=== PATIENT | female | born 1995 | race Hispanic/Latino ===

== ENCOUNTER 2018-01-10 06:55 | Inpatient (IN) | payer OTHER ==
--- OUTSIDE RECORDS SUMMARY | 2018-01-10 06:58 | XMS REPORT ---
:1995 Author Organization eClinicalWorks Care Team Providers Name Role Phone Robi Stevens Provider Role Unavailable Allergies No Known Allergies Problems Problem Type Condition Code Onset Dates Condition Status Problem Encounter for supervision of other Z34.82 Active normal in second trimester Assessment Encounter for supervision of other Z34.83 Active normal , third trimester Problem Encounter for supervision of other Z34.83 Active normal , third trimester Medications No Known Medications Results No Known Results Summary Purpose eClinicalWorks Submission
--- OUTSIDE RECORDS SUMMARY | 2018-01-10 06:58 | XMS REPORT ---
[...] Medications Results No Known Results Summary Purpose [employer] Submission
--- OUTSIDE RECORDS SUMMARY | 2018-01-10 06:58 | XMS REPORT ---
[...] Medications Results No Known Results Summary Purpose [facility]ClinicalWall[facility]ass Submission
--- OUTSIDE RECORDS SUMMARY | 2018-01-10 06:58 | XMS REPORT ---
[...] Medications Results No Known Results Summary Purpose [facility]ClinicalAmi[facility] Submission
--- OUTSIDE RECORDS SUMMARY | 2018-01-10 06:58 | XMS REPORT ---
[...] Medications Results No Known Results Summary Purpose eClinicalInfopia Submission
--- OUTSIDE RECORDS SUMMARY | 2018-01-10 06:58 | XMS REPORT ---
[...] Medications Results No Known Results Summary Purpose [email or web address] Submission
[2018-01-10] MEDS ORDERED: BUTORPHANOL 1 MG/ML INJ IV PRN (07:24)
[2018-01-10] MEDS ORDERED: PROMETHAZINE 25 MG/ML VIAL IV PRN ×2 (07:24)
[2018-01-10] MEDS ORDERED: Ringers Lactate 1,000 ML IV PRN (07:24)
[2018-01-10] MEDS ORDERED: OXYTOCIN/LR 20 UNIT/1,000 ML BAG IV ONE (07:39)
[2018-01-10 07:52] LABS: RPR Titer ND
[2018-01-10 07:58] VITALS: BMI 35.4
[2018-01-10] MEDS ORDERED: OXYTOCIN/LR 20 UNIT/1,000 ML BAG IV SCH (08:00)
[2018-01-10] MEDS ORDERED: Ringers Lactate 1,000 ML IV SCH (08:00)
[2018-01-10 08:05] LABS: Absolute Lymphocytes (CBC) 2.4 K/uL (0.7-4.9); Absolute Monocytes 0.5 K/uL (0.1-1.3); Absolute Neutrophil 5.7 K/uL (1.8-8.0); Basophils % 0.6 % (0-1.3); Hematocrit 36.3 % (36.0-45.0); Lymphocytes % 27.6 % (15.3-44.8); MCH 30.7 pg (27.0-35.0); MCV 92.2 fL (80-100); MPV 9.4 fL (7.6-11.3); RBC Red Blood Cell Count 3.93 M/uL (3.86-4.86)
[2018-01-10 08:13] LABS: Urine Appearance CLEAR; Urine Bilirubin NEGATIVE (NEG); Urine Blood NEGATIVE (NEG); Urine Color YELLOW; Urine Glucose NEGATIVE (NEG); Urine Protein NEGATIVE (NEG); Urine Specific Gravity 1.015 (1.005-1.030); Urine Urobilinogen 0.2 mg/dL (0.2-1.0); Urine pH 7.5 (5.0-7.0)
[2018-01-10 08:57] LABS: Urine Microscopic Reflex ORDER UMIC
[2018-01-10 09:59] LABS: Urine Bacteria <20 /HPF (<20); Urine Culture Reflex Order REFLEXED; Urine RBC <5 /HPF (NONE SEEN)
--- NOTE | 2018-01-10 13:03 | HP ---
Date of Admission: 01/10/2018 History Of Present Illness: Katelyn is a 22-year-old, 2 para 1-0-0-1, who presents at 39 week s and 1 day gestation for induction of labor. The patient has obtained care with me kip davis at 8 weeks gestation. care has been complicated by noninvasive testing, which i ndicated high-risk monosomy X; however, she had an AFP that was negative and then she has been seeing high-risk Maternal- Medicine Dr. Swain, and he states the ultrasound findings have not been sugg estive of Amador syndrome. The patient is aware. She was offered amniocentesis, and she declined. She had an elevated 1 hour glucose screen, the 3 hour was then negative. She had 1 visit to Labor an d Delivery for dehydration, which was resolved easily. She has been having irregular contractions, t he last few weeks and is 2 cm dilated in the office yesterday. She denies vaginal bleeding. No leak age of fluid. Reports good movements. She has OB history of 1 prior vaginal delivery in er 2011, 40 weeks gestation, male infant, 7 pounds 8 ounces, delivered vaginally here at [facility]. See record for further details. Past Surgical History: Includes cholecystectomy and removal of bilateral breast cysts. Past Medical History: Negative. Social History: She is to the father of the baby. They are both employed as police officers . She denies tobacco, alcohol, or drug use. Family History: Significant for thyroid disease, diabetes, and arthritis. Physical Examination: Vital Signs: On admission, blood pressure 116/71, pulse of 79, respirations 18, temperature 97.4. General: Resting comfortably in bed. Head and Neck: Normocephalic, atraumatic. Neck is supple. Lungs: Respirations symmetric nonlabored breathing. Heart: Regular rate and rhythm. Abdomen: Gravid. Extremities: Bilateral lower extremities, no clubbing, cyanosis, or edema. Vaginal exam performed. Normal external female genitalia, 2 cm dilated, 50% effaced, -2 station. Ru pture of membranes performed and meconium stained fluid noted. Laboratory Findings: White blood cell count 8.8, hemoglobin 12.1, hematocrit 36.3, platelet count of 266, urine dip protein is negative. Blood type is O positive. Assessment/plan: Katelyn is a 22-year-old, 2 para 1-0-0-1, at 39 weeks and 1 day gestation, p resents for induction of labor. Rupture of membranes has been performed. She is GBS negative. Colt anthony is being given for labor augmentation. The patient had meconium-stained fluid. scalp elec trode was placed. Pediatrics will be notified if necessary for delivery. heart rate monitorin g, maternal and monitoring will be performed continuously. Anticipate vaginal . HENRY Voice ID: [id number]
[2018-01-10] MEDS ORDERED: LIDOCAINE 2% INJ, 20 mL 20 ML ONE (13:37)
[2018-01-10] MEDS ORDERED: METHYLERGONOVINE 0.2MG/ML AMP IM ONE (13:37)
[2018-01-10] MEDS ORDERED: CARBOPROST TROME 250 MCG/ML IM ONE (13:37)
[2018-01-10] MEDS ORDERED: ONDANSETRON 4 MG (ODT) TAB PO PRN (14:11)
[2018-01-10] MEDS ORDERED: METHYLERGONOVINE 0.2 MG TAB PO PRN (14:11)
[2018-01-10] MEDS ORDERED: ACETAMINOPHEN 500 MG TAB PO PRN (14:11)
[2018-01-10] MEDS ORDERED: DOCUSATE NA/SENNA CONC 1 TAB PO PRN (14:11)
[2018-01-10] MEDS ORDERED: BISACODYL 10 MG RECTAL SUPP RECT PRN (14:11)
--- NOTE | 2018-01-10 14:14 | P.OP ---
Date of Service: 01/10/18 Findings and Operative Technique Patient delivered a viable female infant in cephalic presentation on 01/10/2018 at 1:48 p.m.. was delivered without difficulty over a midline episiotomy. Once infant was delivered nose and mouth were suctioned with a suction bulb. Cord was clamped and cut. Infant was placed on mother's abdomen for skin to skin bonding. Attention was then turned to the placenta which was delivered with gentle traction and was found to be intact. Attention was then turned to the midline episiotomy which was repaired. He was noted to be 2nd degree. It was repaired with a 2 0 Vicryl in the usual fashion. Estimated blood loss was 250 cc. Infant's weight was found to be 6 lb 13 oz. Apgars were 8 and 9. 1st stage of labor was 4 hr and 19 min. 2nd stage was 4 min. Both mom and baby are doing well.
[2018-01-10] MEDS: Oxycodone HCl/Acetaminophen 1 TAB TAB PO PRN (19:15)
[2018-01-10] MEDS: IBUPROFEN 200 MG TAB PO PRN (22:05)
[2018-01-10 23:59] LABS: RPR (Rapid Plasma Reagin) NON-REACT (NON-REACT)
[2018-01-11] MEDS: Oxycodone HCl/Acetaminophen 1 TAB TAB PO PRN ×3 (00:10→17:26)
[2018-01-11 05:17] LABS: Absolute Lymphocytes (CBC) 2.9 K/uL (0.7-4.9); Absolute Monocytes 0.8 K/uL (0.1-1.3); Absolute Neutrophil 7.4 K/uL (1.8-8.0); Basophils % 0.6 % (0-1.3); Hematocrit 32.6 % (36.0-45.0); Lymphocytes % 25.7 % (15.3-44.8); MCH 31.2 pg (27.0-35.0); MCV 92.1 fL (80-100); MPV 8.3 fL (7.6-11.3); Monocytes % 7.4 % (3.3-12.3); RBC Red Blood Cell Count 3.54 M/uL (3.86-4.86)
[2018-01-11] MEDS: IBUPROFEN 200 MG TAB PO PRN (07:15)
[2018-01-11] MEDS ORDERED: Ringers Lactate 2,000 ML IV ONE (09:48)
[2018-01-11 17:26] VITALS: BP 126/71; TEMP 97.9
[2018-01-12 18:16] LABS: HBsAG Nonreactive (Nonreactive)
--- NOTE | 2018-01-18 11:22 | P.DS ---
Admission Date: 01/10/18 Discharge Date: 01/11/18 Disposition: ROUTINE DISCHARGE Discharge Condition: GOOD Brief History of Present Illness: See H and P Hospital Course: Patient did well following delivery. She is ambulating without difficulty. She is voiding well. She is bonding well with the baby. She is breast-feeding. She has no issues. Vital Signs/Physical Exam: Temp Pulse Resp BP Pulse Ox 97.9 F 78 18 126/71 01/11/18 17:25 01/11/18 17:25 01/11/18 17:25 01/11/18 17:25 General: Alert, In no apparent distress HEENT: Atraumatic Neck: Supple Respiratory: Normal air movement Cardiovascular: No edema, Normal pulses Gastrointestinal: Soft and benign (Fundus firm) Musculoskeletal: No clubbing, No swelling Neurological: Normal gait, Normal speech Laboratory Data at Discharge: WBC 11.3 K/uL (4.3-10.9) H D 01/11/18 05:02 Hgb 11.1 g/dL (12.0-15.0) L 01/11/18 05:02 Hct 32.6 % (36.0-45.0) L 01/11/18 05:02 Plt Count 254 K/uL (152-406) 01/11/18 05:02 Home Medications: Vits W-Ca,Fe,FA(<1Mg) [] 1 tab PO DAILY 05/10/12 Diet: Regular Activity: No lifting more than 10 lbs Followup: Robi Stevens DO [ACTIVE - CAN ADMIT] - (Follow up care with Dr. Stevens in 4- 6 weeks.)
== END 2018-01-11 17:50 | disposition home or self-care (01) | DRG 775 ==
LOC: 2ND-WC 06:55
PROVIDERS: ADMIT Student in an Organized Health Care Education/Training Program; ATTEND Student in an Organized Health Care Education/Training Program
PROC: 10E0XZZ Delivery of Products of Conception, External Approach (ICD-10-PCS; principal; 2018-01-10)
PROC: 10907ZC Drainage of Amniotic Fluid, Therapeutic from Products of Conception, Via Natural or Artificial Opening (ICD-10-PCS; 2018-01-10)
PROC: 0W8NXZZ Division of Female Perineum, External Approach (ICD-10-PCS; 2018-01-10)
PROC: 3E033VJ Introduction of Other Hormone into Peripheral Vein, Percutaneous Approach (ICD-10-PCS; 2018-01-10)
DX: O80 Encounter for full-term uncomplicated delivery (principal); Z3A.39 39 weeks gestation of pregnancy; Z37.0 Single live birth
CPT/HCPCS: 36415; 81003; 81015; 85025; 86592; 86901; 87086; 87088; 87340; J0595; J2210; J2550; J2590